=== PATIENT | male | born 1980 | race Caucasian/White ===

== ENCOUNTER 2016-12-18 23:51 | Inpatient (IN) | payer BC ==
[~2016-12-18] VITALS: Ht 177.8 cm; Wt 108.9 kg
[2016-12-19] VITALS (12 sets, daily range): BP systolic 110–140
[2016-12-19 02:31] LABS: HEMATOCRIT 48.5 % (36-54); HEMOGLOBIN 16.3 g/dL (14.0-18.0); MEAN CORPUSCULAR HEMOGLOBIN 30 pg (27-31); MEAN CORPUSCULAR HGB CONC 34 % (32-36); MEAN CORPUSCULAR VOLUME 90 fL (79.0-98.0); PLATELET COUNT (AUTO) 214 K/uL (130-430); RED BLOOD CELL COUNT(AUTO) 5.42 MIL/uL (4.2-6.2); RED CELL DISTRIBUTION WIDTH 11.8 % (9.0-15.0); WHITE BLOOD COUNT (AUTO) 21.7 K/uL (4.8-10.8)
[2016-12-19 02:37] LABS: CALCIUM 9.2 mg/dL (8.4-11.0); CREATININE 1.41 mg/dL (0.55-1.30); POTASSIUM 3.4 mmol/L (3.5-5.1)
[2016-12-19 02:41] LABS: ALBUMIN 4.6 g/dL (3.4-4.8); BASOPHILS % (MANUAL) 0 % (0-2); EOSINOPHILS % (MANUAL) 0 % (0-7); LYMPHOCYTES % (MANUAL) 6 % (20-46); MONOCYTES % (MANUAL) 4 % (0-11); TOTAL BILIRUBIN 0.5 mg/dL (0.0-1.0); TOTAL PROTEIN, SERUM 8.8 g/dL (6.4-8.3)
[2016-12-19] MEDS ORDERED: ONDANSETRON HCL 4 MG/2 ML VIAL IVP ONE ×2 (05:30→18:05)
[2016-12-19] MEDS ORDERED: MORPHINE SULFATE 10 MG/ML VIAL IVP ONE (05:30)
[2016-12-19] MEDS ORDERED: MORPHINE 2 MG/ML INJ. SYRINGE IVP PRN ×2 (06:30→10:15)
[2016-12-19] MEDS ORDERED: PIPERACILLIN/TAZOBACTAM 3.375 GM/VIAL (ZOSYN) IV ONE (06:50)
[2016-12-19 08:54] LABS: PROTHROMBIN TIME 10.7 SECS (9.5-12.5)
[2016-12-19] MEDS: PIPERACILLIN/TAZO 3.375 GM in NS 50 ML IV SCH ×3 (09:00→17:36)
[2016-12-19] MEDS ORDERED: ACETAMINOPHEN 325 MG TABLET PO PRN (10:15)
[2016-12-19] MEDS ORDERED: ONDANSETRON HCL 4 MG/2 ML VIAL IVP PRN ×2 (10:15→19:00)
[2016-12-19] MEDS ORDERED: LORazepam 2 MG/ML VIAL IVP PRN (10:15)
[2016-12-19] MEDS ORDERED: POTASSIUM CHLORIDE 10 MEQ TAB.PRT.SR PO PRN (10:15)
[2016-12-19] MEDS ORDERED: MAGNESIUM SULFATE 50 ML IV PRN (10:15)
[2016-12-19] MEDS ORDERED: ZOLPIDEM TARTRATE 5 MG TABLET PO PRN (10:15)
[2016-12-19] MEDS ORDERED: DOCUSATE SODIUM 100 MG CAPSULE PO PRN (10:15)
[2016-12-19] MEDS ORDERED: POTASSIUM CHLORIDE 40 MEQ in NS 250 ML IV ONE (10:15)
[2016-12-19] MEDS: D5NS 1,000 ML IV SCH ×2 (11:13→21:40)
[2016-12-19 11:24] LABS: BILIRUBIN,URINE NEGATIVE (NEGATIVE); BLOOD, URINE NEGATIVE (NEGATIVE); CLARITY/URINE CLEAR (CLEAR); COLOR,URINE YELLOW (YELLOW); GLUCOSE,URINE NEGATIVE (NEGATIVE); KETONES,URINE NEGATIVE (NEGATIVE); LEUKOCYTE ESTERASE ,URINE NEGATIVE (NEGATIVE); NITRITE, URINE NEGATIVE (NEGATIVE); PH,URINE 6.5 (5.0-8.0); PROTEIN URINE 1+ (NEGATIVE)
[2016-12-19 11:35] LABS: BACTERIA,URINE RARE /HPF (None Seen); RBC,URINE 0-3 /HPF (0-3); WBC,URINE 0-3 /HPF (0-3)
[2016-12-19] MEDS ORDERED: LIDOCAINE 1% 10 MG/ML, 20 ML MDV INJ ONE (18:05)
[2016-12-19] MEDS ORDERED: BUPIVACAINE /EPINEPHRINE/PF 0.25% 30 ML VIAL INJ ONE (18:05)
[2016-12-19] MEDS ORDERED: MIDAZOLAM HCL 5 MG/5 ML VIAL IVP ONE (18:05)
[2016-12-19] MEDS ORDERED: NS 1000 ML BAG IV ONE (18:05)
[2016-12-19] MEDS ORDERED: ALPROSTADIL 500 MCG/ML IV ONE (18:05)
[2016-12-19] MEDS ORDERED: LR 1,000 ML IV.SOLN IV ONE (18:05)
[2016-12-19] MEDS ORDERED: PROPOFOL 200MG/ 20ML VIAL (DIPRIVAN) IV ONE (18:05)
[2016-12-19] MEDS ORDERED: KETOROLAC TROMETHAMINE 30 MG VIAL IVP ONE (18:05)
[2016-12-19] MEDS ORDERED: ROPIVACAINE 40 MG/20 ML AMP EP ONE (18:05)
[2016-12-19] MEDS ORDERED: NS IRRIG SOLN 1000 ML IR ONE (18:05)
[2016-12-19] MEDS ORDERED: GLYCOPYRROLATE 0.2 MG/ML VIAL IJ ONE (18:05)
[2016-12-19] MEDS ORDERED: METOPROLOL TARTRATE 5 MG/5 ML VIAL IVP ONE (18:05)
[2016-12-19] MEDS ORDERED: ROCURONIUM BROMIDE 10 MG/ML (ZEMURON) IV ONE (18:05)
[2016-12-19] MEDS ORDERED: fentaNYL CITRATE 250 MCG/5 ML AMP IV ONE (18:05)
[2016-12-19] MEDS ORDERED: SEVOFLURANE 15 MIN GAS INH ONE (18:05)
[2016-12-19] MEDS ORDERED: LR 1,000 ML IV SCH (18:52)
[2016-12-19] MEDS ORDERED: MEPERIDINE HCL/PF 25 MG/ML DISP.SYRIN IVP PRN ×2 (19:00)
[2016-12-19] MEDS ORDERED: HYDROmorphone 2 MG/ML VIAL IVP PRN ×2 (19:00)
[2016-12-19] MEDS ORDERED: HYDROmorphone 1 MG INJ. 1 MG/ML AMPUL IVP PRN (19:00)
[2016-12-19] MEDS ORDERED: KETOROLAC TROMETHAMINE 30 MG VIAL IVP PRN (19:00)
[2016-12-20] VITALS: BP_SYST 116
[2016-12-20] MEDS: PIPERACILLIN/TAZO 3.375 GM in NS 50 ML IV SCH ×4 (00:18→17:36)
[2016-12-20 04:00] VITALS: BP_SYST 127
[2016-12-20] MEDS: D5NS 1,000 ML IV SCH ×2 (07:30→19:56)
[2016-12-20 08:10] VITALS: BP_SYST 123
[2016-12-20 08:15] LABS: HEMATOCRIT 46.8 % (36-54); HEMOGLOBIN 15.4 g/dL (14.0-18.0); MEAN CORPUSCULAR HEMOGLOBIN 30 pg (27-31); MEAN CORPUSCULAR HGB CONC 33 % (32-36); MEAN CORPUSCULAR VOLUME 91 fL (79.0-98.0); PLATELET COUNT (AUTO) 202 K/uL (130-430); RED BLOOD CELL COUNT(AUTO) 5.17 MIL/uL (4.2-6.2); WHITE BLOOD COUNT (AUTO) 21.8 K/uL (4.8-10.8)
[2016-12-20 08:23] LABS: ALBUMIN 3.7 g/dL (3.4-4.8); CALCIUM 8.9 mg/dL (8.4-11.0); CREATININE 1.27 mg/dL (0.55-1.30); POTASSIUM 3.8 mmol/L (3.5-5.1); TOTAL BILIRUBIN 1.2 mg/dL (0.0-1.0)
[2016-12-20 09:05] LABS: BAND % (MANUAL) 2 % (0-6); BASOPHILS % (MANUAL) 0 % (0-2); EOSINOPHILS % (MANUAL) 0 % (0-7); LYMPHOCYTES % (MANUAL) 8 % (20-46); MONOCYTES % (MANUAL) 6 % (0-11)
[2016-12-20 16:00] VITALS: BP_SYST 129
[2016-12-20 20:25] VITALS: BP_SYST 127
[2016-12-21] MEDS: PIPERACILLIN/TAZO 3.375 GM in NS 50 ML IV SCH ×2 (00:08→05:33)
[2016-12-21 00:12] VITALS: BP_SYST 128
[2016-12-21 03:40] VITALS: BP_SYST 125
[2016-12-21 03:44] VITALS: BP_SYST 127
[2016-12-21 04:12] VITALS: BP_SYST 125
[2016-12-21] MEDS: D5NS 1,000 ML IV SCH (05:33)
[2016-12-21 07:31] VITALS: BP_SYST 119
[2016-12-21 07:41] LABS: BASOPHILS # (AUTO) 0.2 K/uL (0.0-0.2); BASOPHILS % (AUTO) 1.2 % (0.0-2.0); EOSINOPHILS # (AUTO) 0.1 K/uL (0.0-0.4); EOSINOPHILS % (AUTO) 0.6 % (0.0-4.0); HEMATOCRIT 49.2 % (36-54); HEMOGLOBIN 16.3 g/dL (14.0-18.0); LYMPHOCYTES # (AUTO) 2.3 K/uL (1.0-5.5); LYMPHOCYTES % (AUTO) 16.2 % (20.5-51.5); MEAN CORPUSCULAR HEMOGLOBIN 30 pg (27-31); MEAN CORPUSCULAR HGB CONC 33 % (32-36); MEAN CORPUSCULAR VOLUME 90 fL (79.0-98.0); MONOCYTES # (AUTO) 1.4 K/uL (0.0-1.0); MONOCYTES % (AUTO) 10.1 % (1.7-9.3); NEUTROPHILS # (AUTO) 10.2 K/uL (1.8-7.7); NEUTROPHILS % (AUTO) 71.9 % (40.0-70.0); PLATELET COUNT (AUTO) 193 K/uL (130-430); RED BLOOD CELL COUNT(AUTO) 5.44 MIL/uL (4.2-6.2); RED CELL DISTRIBUTION WIDTH 11.8 % (9.0-15.0); WHITE BLOOD COUNT (AUTO) 14.2 K/uL (4.8-10.8)
[2016-12-21 07:53] LABS: ALBUMIN 3.5 g/dL (3.4-4.8); CALCIUM 8.9 mg/dL (8.4-11.0); CREATININE 1.29 mg/dL (0.55-1.30); POTASSIUM 3.8 mmol/L (3.5-5.1); TOTAL PROTEIN, SERUM 8.2 g/dL (6.4-8.3)
[2016-12-21] MEDS ORDERED: LEVO500T20 PO (09:32)
[2016-12-21] MEDS ORDERED: METR500T PO (09:32)
[2016-12-21] MEDS ORDERED: HYDR-1189 PO ×2 (10:19→10:21)
[2016-12-21 10:33] VITALS: BP_SYST 119
[2016-12-21] MEDS ORDERED: TYC3 PO (13:16)
[2016-12-22] MEDS ORDERED: LEVO500T20 PO (07:11)
[2016-12-22] MEDS ORDERED: METR500T PO (07:11)
== END 2016-12-21 11:35 | disposition home or self-care (01) | DRG 853 ==
LOC: SED 23:51 → SMU 12-19 06:23
PROVIDERS: ADMIT General Practice; ATTEND General Practice
PROC: 3E0T3CZ (ICD-10-PCS; 2016-12-19)
PROC: 0FT44ZZ Resection of Gallbladder, Percutaneous Endoscopic Approach (ICD-10-PCS; principal; 2016-12-19 17:30)
DX: A41.9 Sepsis, unspecified organism (principal); N17.0 Acute kidney failure with tubular necrosis; K80.00 Calculus of gallbladder with acute cholecystitis without obstruction; I10 Essential (primary) hypertension; E87.6 Hypokalemia; E66.01 Morbid (severe) obesity due to excess calories; Z68.34 Body mass index [BMI] 34.0-34.9, adult
CPT/HCPCS: 36415; 71010; 76700-TC; 80048; 80053; 81000-TC; 82150-TC; 83036; 83605; 83690-TC; 83735-TC; 85007; 85025; 85027; 85610-TC; 85730-TC; 87040-TC; 87070; 87070-TC; 87075-TC; 87081; 88304; 93005; 96374; 96375; 99285; C1727; J1885; J2001; J2250; J2270; J2405; J2543; J2704; J2795; J3010; J3480; J3490; J7030; J7042; J7050; J7120